=== PATIENT | female | born 1960 | race Asian ===

== ENCOUNTER 2022-07-17 16:48 | Emergency (ER) | payer OTHER ==
[~2022-07-17] VITALS: Ht 160 cm; Wt 68.5 kg
[2022-07-17 17:29] VITALS: BP 149/92
[2022-07-17] MEDS ORDERED: NAPR-1704 PO (18:30)
--- NOTE | 2022-07-17 18:38 | NUR ---
KNEE IMMOBILIZER APPLIED. + CMS
== END 2022-07-17 18:49 | disposition home or self-care (01) ==
LOC: MED 16:48
DX: S83.91XA Sprain of unspecified site of right knee, initial encounter (principal); Z79.1 Long term (current) use of non-steroidal anti-inflammatories (NSAID); X58.XXXA Exposure to other specified factors, initial encounter; Y92.89 Other specified places as the place of occurrence of the external cause; Y93.01 Activity, walking, marching and hiking; Y99.8 Other external cause status
CPT/HCPCS: 29505; 73562; 99283